=== PATIENT | female | born 1980 | race American Indian/Alaskan Native ===

== ENCOUNTER 2016-09-23 09:23 | Emergency (ER) | payer MEDICAID ==
[2016-09-23 09:27] VITALS: RESP 18; TEMP 97.9
--- NOTE | 2016-09-23 09:46 | C.PDOC ---
History Of Present Illness 36 yo female, hx of chronic pain 2/2 le, requsting refill of her tramadol for "chronic pain". pt rerpots no new trauma or other complaints. pt noted to have multiple rx by pmd for tramadol. Time Seen by Provider: 09/23/16 09:42 Chief Complaint (Nursing): Pain, Chronic Past Medical History Reviewed: Historical Data, Nursing Documentation, Vital Signs Vital Signs: Last Vital Signs Temp 97.9 F 09/23/16 09:25 Pulse 92 H 09/23/16 10:13 Resp 18 09/23/16 10:13 BP 154/95 H 09/23/16 10:13 Pulse Ox 98 09/23/16 10:13 - Medical History PMH: HTN Surgical History: Appendectomy Family History: States: Unknown Family Hx - Social History Hx Tobacco Use: No Hx Alcohol Use: No Hx Substance Use: No - Immunization History Hx Tetanus Toxoid Vaccination: Yes Hx Influenza Vaccination: Yes Hx Pneumococcal Vaccination: No Review Of Systems Except As Marked, All Systems Reviewed And Found Negative. Physical Exam - Physical Exam Appears: Well, No Acute Distress Skin: Normal Color, Warm, Dry Eye(s): bilateral: Normal Inspection, PERRL, EOMI Nose: Normal Throat: Normal Neck: Normal Cardiovascular: Rhythm Regular Respiratory: Normal Breath Sounds Gastrointestinal/Abdominal: Normal Exam Back: Normal Inspection Extremity: Normal ROM Additional Physical Exam Comments: (+)chronic appearing wounds to b/l hands ED Course And Treatment O2 Sat by Pulse Oximetry: 100 Medical Decision Making Medical Decision Making: advised cannot refill narcoti pain meds. will dose x1 , and advise to seek outpt appt for refill Disposition - Disposition Disposition: HOME/ ROUTINE Disposition Time: 10:00 Condition: GOOD Additional Instructions: please follow up with your doctor for refills of your pain medications. return to er with worsening symptoms or concerns. Instructions: Chronic Pain (ED) - Clinical Impression Clinical Impression: Chronic pain
[2016-09-23 10:13] VITALS: BP 154/95; PULSE 92
[2016-09-23 11:21] VITALS: O2SAT 100
== END 2016-09-23 10:14 | disposition home or self-care (01) ==
LOC: C.ER 09:23
DX: G89.29 Other chronic pain (principal)

== ENCOUNTER 2018-08-13 02:57 | Emergency (ER) | payer MEDICAID ==
[2018-08-13] MEDS ORDERED: DiphenhydrAMINE 50 mg/ml Inj IM STA (03:13)
[2018-08-13 03:15] VITALS: RESP 20
[2018-08-13] MEDS ORDERED: DiphenhydrAMINE 50 mg/ml Inj ONE (03:26)
--- NOTE | 2018-08-13 03:50 | C.PDOC ---
History Of Present Illness 38 year old female presents to the ED c/o itchy rash to the anterior aspect of her neck since . Patient reports taking some Benadryl yesterday with minimal relief. Patient states rash is becoming painful. Patient denies fever, chills, facial swelling, tongue swelling, SOB, wheezing. Time Seen by Provider: 08/13/18 03:06 Chief Complaint (Nursing): Abnormal Skin Integrity History Per: Patient History/Exam Limitations: no limitations Onset/Duration Of Symptoms: Days Current Symptoms Are (Timing): Still Present Location Of Injury: Anterior: Neck Quality Of Symptoms: Painful, Itching Recent travel outside of the [place]: No Additional History Per: Patient Past Medical History Reviewed: Historical Data, Nursing Documentation, Vital Signs Vital Signs: Last Vital Signs Temp 98.6 F 08/13/18 03:08 Pulse 91 H 08/13/18 03:08 Resp 20 08/13/18 03:08 BP 157/114 H 08/13/18 03:08 Pulse Ox 99 08/13/18 03:08 - Medical History PMH: HTN Surgical History: Appendectomy Family History: States: Unknown Family Hx - Social History Hx Tobacco Use: No Hx Alcohol Use: No Hx Substance Use: No - Immunization History Hx Tetanus Toxoid Vaccination: Yes Hx Influenza Vaccination: Yes Hx Pneumococcal Vaccination: No Review Of Systems Constitutional: Negative for: Fever, Chills, Weakness Eyes: Negative for: Redness ENT: Negative for: Mouth Swelling Respiratory: Negative for: Cough, Shortness of Breath Gastrointestinal: Negative for: Nausea, Vomiting, Diarrhea Musculoskeletal: Positive for: Neck Pain Skin: Positive for: Rash Neurological: Negative for: Weakness, Numbness, Headache Physical Exam - Physical Exam Appears: Well, Non-toxic, No Acute Distress Skin: Normal Color, Warm, Rash (erythema to the left anterior nck area with small papular lesions and excoriated skin), Other (no vesicles, no induration ) Head: Atraumatic, Normacephalic Eye(s): bilateral: Normal Inspection (no scleral icterus), PERRL, EOMI Nose: Normal Oral Mucosa: Moist Tongue: No Swelling Lips: No Swelling Throat: Normal (no swelling or innjection), No Exudate, Other (airway patent) Neck: Normal ROM, Supple Chest: Symmetrical Respiratory: No Accessory Muscle Use, Other (normal inspiratory effort) Neurological/Psych: Oriented x3, Normal Speech ED Course And Treatment O2 Sat by Pulse Oximetry: 99 (ON RA) Pulse Ox Interpretation: Normal Medical Decision Making Medical Decision Making: Plan: * Benadryl 25 mg PO * Motrin 800 mg PO Rash likely contact dermatitis type rash localized to the neck area. No pain or rash elsewhere. Disposition Counseled Patient/Family Regarding: Diagnosis, Need For Followup, Rx Given - Disposition Referrals: Donis Cruz MD [Primary Care Provider] - Disposition: HOME/ ROUTINE Disposition Time: 04:09 Condition: IMPROVED Prescriptions: Triamcinolone 0.1% [Kenalog 0.1% Oint] 1 gm TP BID #1 tube Instructions: Contact Dermatitis (DC) Forms: [facility] (Pakistani), General Discharge Instructions - Clinical Impression Clinical Impression: Allergic contact dermatitis - PA / WARP DOFFER / Resident Statement MD/DO has reviewed & agrees with the documentation as recorded. - Scribe Statement The provider has reviewed the documentation as recorded by the Scribe Aneesh Miller All medical record entries made by the Scribe were at my direction and personally dictated by me. I have reviewed the chart and agree that the record accurately reflects my personal performance of the history, physical exam, medical decision making, and the department course for this patient. I have also personally directed, reviewed, and agree with the discharge instructions and disposition.
[2018-08-13 04:20] VITALS: BP 152/89; PULSE 90; TEMP 97.3
[2018-08-13 06:19] VITALS: O2SAT 99
== END 2018-08-13 04:18 | disposition home or self-care (01) ==
LOC: SUPCPDRO 02:57 → C.ER 02:57
DX: L23.9 Allergic contact dermatitis, unspecified cause (principal)
CPT/HCPCS: 96372; 99284; J1200